=== PATIENT | male | born 1930 | race Caucasian/White ===

== ENCOUNTER → 2017-03-20 | Outpatient (CLI) | payer MEDICARE, OTHER ==
[~2017-03-20] MED LIST: ISOVUE-370 76% 100ML VIAL (Q9967) As Ordered ONE
--- NOTE | 2017-03-20 11:42 | REP ---
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 COMPARISON: None. CONTRAST: 100 mL Isovue 370. There is mediastinal adenopathy. There are no pleural or pericardial effusions. The ascending aorta is of normal caliber. At the proximal most portion of the descending thoracic aorta just beyond the aortic arch the maximal transverse dimension is 3.6 cm. Just distal to this the descending thoracic aorta has a maximal AP dimension of 3.8 cm and a maximal width of 4.6 cm. The descending thoracic aorta is markedly tortuous. The remainder of the caliber of the descending thoracic aorta is within normal limits. Evaluation of the lung david show left lower lobe varicoid bronchiectasis in an isolated area and the medial basal segment of the left lower lobe seen in conjunction with scattered cystic air-spaces and right lung base pleural blebs. There was evidence of biapical pleuroparenchymal scarring. The imaged osseous structures show chronic spinal degenerative changes and discogenic changes with bilateral shoulder degenerative changes. IMPRESSION: 1. Thoracic aortic measurements as described above. 2. Mediastinal adenopathy of an uncertain nature correlate clinically. 3. Chronic lung field changes as described above. 4. Other findings as described above. Signed by Gabriel Dunn DO 03/20/2017 11:52 A
--- NOTE | 2017-03-23 16:29 | REP ---
CT ANGIOGRAM ABDOMEN AND PELVIS: CT angiogram abdomen and pelvis performed following the intravenous administration of 100 mL of Isovue-370. Sagittal, coronal and MIP reconstruction images are performed. There is mild scattered atherosclerotic calcification of the abdominal aorta with tortuosity. There is no aneurysm. There is mild ectasia distally between the level of the renal arteries and bifurcation with a maximum AP diameter of 2.6 cm. Common iliac arteries are mildly ectatic, both measuring about 1.3 cm in maximum diameter. Celiac, superior mesenteric and inferior mesenteric arteries demonstrate mild narrowing without significant stenosis. There is no significant renal artery stenosis. There is no adenopathy. The liver, spleen, adrenals, pancreas and kidneys appear unremarkable. 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 There is sigmoid diverticulosis. There is no evidence of acute diverticulitis. There is no free air or free fluid in the abdomen or pelvis. No bowel wall abnormality is seen. IMPRESSION: Mild scattered atherosclerotic plaquing. Mild ectasia at distal abdominal aorta without aneurysm. Signed by Vladimir Maxwell MD 03/23/2017 05:45 P
== END ==
LOC: M RAD 10:36
PROVIDERS: ATTEND Internal Medicine
DX: I71.2 Thoracic aortic aneurysm, without rupture (principal)
CPT/HCPCS: 71275; 74174; Q9967

== ENCOUNTER → 2017-07-23 | Outpatient (REF) | payer MEDICARE, OTHER ==
[2017-07-23 14:53] LABS: ALBUMIN 4.2 GM/DL (3.2-5.2); ALBUMIN/GLOBULIN RATIO 1.24 (1.00-1.93); ALKALINE PHOSPHATASE 91 U/L (45-117); ALT/SGPT 38 U/L (12-78); ANION GAP 12 MEQ/L (8-16); AST/SGOT 32 U/L (15-37); BILIRUBIN,TOTAL 0.7 MG/DL (0.2-1.0); BLOOD UREA NITROGEN 14 MG/DL (7-18); CALCIUM LEVEL 9.6 MG/DL (8.8-10.2); CARBON DIOXIDE LEVEL 26 MEQ/L (21-32); CHLORIDE LEVEL 102 MEQ/L (98-107); CREATININE FOR GFR 0.89 MG/DL (0.70-1.30); GLOMERULAR FILTRATION RATE > 60.0 (>35); GLUCOSE, FASTING 78 MG/DL (83-110); POTASSIUM SERUM 4.6 MEQ/L (3.5-5.1); SODIUM LEVEL 140 MEQ/L (136-145); TOTAL PROTEIN 7.6 GM/DL (6.4-8.2)
[2017-07-23 15:14] LABS: BASO % 0.4 % (0.0-1.0); EOS # 0.2 K/mm3 (0.0-0.50); EOS % 2.1 % (0.0-3.0); LARGE UNSTAINED CELL # 0.2 K/mm3 (0.0-0.4); LARGE UNSTAINED CELL % 2.7 % (0.0-4.0); LYMPH # 1.8 K/mm3 (1.5-4.5); LYMPH % 22.3 % (24.0-44.0); MEAN CORPUSCULAR HEMOGLOBIN 33.1 pg (27.0-33.0); MEAN CORPUSCULAR HGB CONC 33.9 g/dl (32.0-36.5); MEAN CORPUSCULAR VOLUME 97.8 fl (80.0-96.0); MONO # 0.7 K/mm3 (0.0-0.8); MONO % 8.3 % (0.0-5.0); NEUTROPHILS # 5.1 K/mm3 (1.8-7.7); NEUTROPHILS % 64.1 % (36.0-66.0); PLATELET COUNT, AUTOMATED 238 k/mm3 (150-450); RED CELL DISTRIBUTION WIDTH 12.9 % (11.5-14.5)
== END ==
LOC: M LABNEURO 11:30
PROVIDERS: ATTEND Psychiatry & Neurology Neurology
DX: G45.9 Transient cerebral ischemic attack, unspecified (principal); R73.01 Impaired fasting glucose; E04.9 Nontoxic goiter, unspecified

== ENCOUNTER → 2019-09-21 | Outpatient (REF) | payer MEDICARE, OTHER ==
[2019-09-21 20:13] LABS: BASO % 0.5 % (0.0-1.0); EOS # 0.1 10^3/uL (0.0-0.5); EOS % 0.9 % (0.0-3.0); HEMATOCRIT 44.7 % (42.0-52.0); HEMOGLOBIN 14.3 g/dl (13.5-17.5); LYMPH # 1.8 10^3/uL (1.5-5.0); LYMPH % 20.7 % (24.0-44.0); MEAN CORPUSCULAR HEMOGLOBIN 31.9 pg (27.0-33.0); MEAN CORPUSCULAR VOLUME 99.8 fl (80.0-96.0); MONO # 1.4 10^3/uL (0.0-0.8); MONO % 16.4 % (0.0-5.0); NEUTROPHILS # 5.2 10^3/uL (1.5-8.5); NEUTROPHILS % 61.3 % (36.0-66.0); PLATELET COUNT, AUTOMATED 237 10^3/uL (150-450); RED BLOOD COUNT 4.48 10^6/uL (4.30-6.10); WHITE BLOOD COUNT 8.6 10^3/uL (4.0-10.0)
[2019-09-21 20:39] LABS: HEMOGLOBIN A1c 5.7 %
[2019-09-21 20:54] LABS: ALT/SGPT 28 U/L (12-78); BILIRUBIN,TOTAL 0.8 MG/DL (0.2-1.0); BLOOD UREA NITROGEN 16 MG/DL (7-18); CALCIUM LEVEL 9.3 MG/DL (8.8-10.2); CARBON DIOXIDE LEVEL 26 MEQ/L (21-32); CHLORIDE LEVEL 104 MEQ/L (98-107); CHOLESTEROL LEVEL 126 MG/DL (<200); CREATININE FOR GFR 0.88 MG/DL (0.70-1.30); GLOMERULAR FILTRATION RATE > 60.0 (>35); GLUCOSE, FASTING 87 MG/DL (70-100); HDL CHOLESTEROL 69 MG/DL (>40); POTASSIUM SERUM 4.6 MEQ/L (3.5-5.1); SODIUM LEVEL 138 MEQ/L (136-145); TRIGLYCERIDES LEVEL 74 MG/DL (<150)
[2019-09-21 20:55] LABS: ALBUMIN 3.8 GM/DL (3.2-5.2); CHOLESTEROL RISK RATIO 1.826 (<5); LDL CHOLESTEROL 42 MG/DL (<100); NON-HDL-C 57 MG/DL; TOTAL 25(OH) VITAMIN D 23.5 NG/ML (30.0-100.0); TOTAL PROTEIN 7.2 GM/DL (6.4-8.2); URIC ACID 4.6 MG/DL (3.5-7.2); VITAMIN B12 LEVEL 589 PG/ML (247-911)
== END ==
LOC: M SFHCLERA 10:03
PROVIDERS: ATTEND Family Medicine
DX: I10 Essential (primary) hypertension (principal); E53.8 Deficiency of other specified B group vitamins; E55.9 Vitamin D deficiency, unspecified; M10.9 Gout, unspecified
CPT/HCPCS: 80053; 80061; 82306; 82607; 83036; 84443; 84550; 85025; G0463

== ENCOUNTER 2020-04-05 07:08 | Emergency (ER) | payer MEDICARE, OTHER ==
[~2020-04-05] VITALS: Ht 170.2 cm; Wt 81.8 kg
[2020-04-05] MEDS ORDERED: FAMO1TAB11 (07:19)
[2020-04-05] MEDS ORDERED: VITA-122 (07:19)
[2020-04-05] MEDS ORDERED: BENA40TA5 (07:19)
[2020-04-05] MEDS ORDERED: ASPI81CH33 (07:19)
[2020-04-05] MEDS ORDERED: CELE1CAP9 (07:19)
[2020-04-05] MEDS ORDERED: ALLO100T (07:19)
[2020-04-05] MEDS ORDERED: TAMS1CAP17 (07:19)
[2020-04-05] MEDS ORDERED: AMLO2.5T3 (07:19)
--- NOTE | 2020-04-05 08:03 | REP ---
PELVIS RIGHT HIP: Three views. HISTORY: Injury lifting leg. Right groin pain. FINDINGS: AP view of the pelvis shows an intact bony pelvic ring. No fractures seen. No bony destructive lesion is seen. No sacral lesion is observed. There is mild bilateral hip joint osteoarthritis with mild acetabular and femoral head spurring. There is some chondrocalcinosis at the left hip joint. AP and frog-leg views of the right hip demonstrate the osteoarthritic spurring inferiorly. There is some tendon insertion site spurring on the greater and lesser trochanters. No acute bony abnormalities seen. IMPRESSION: No acute abnormality. Tendon insertion site spurring and bilateral hip osteoarthritis. Electronically Signed by Frank Nascimento MD 04/05/2020 08:43 A
[2020-04-05 08:28] VITALS: BP 140/80
[2020-04-05] MEDS ORDERED: ACETAMINOPHEN 325 MG TAB PO ONE (08:30)
[2020-04-23] MEDS ORDERED: ALL10TAB29 PO (06:20)
== END 2020-04-05 08:37 | disposition home or self-care (01) ==
LOC: M ED 07:08
DX: S76.811A Strain of other specified muscles, fascia and tendons at thigh level, right thigh, initial encounter (principal); M16.11 Unilateral primary osteoarthritis, right hip; M76.9 Unspecified enthesopathy, lower limb, excluding foot; X50.1XXA Overexertion from prolonged static or awkward postures, initial encounter; Y92.098 Other place in other non-institutional residence as the place of occurrence of the external cause; I10 Essential (primary) hypertension; E78.5 Hyperlipidemia, unspecified; K21.9 Gastro-esophageal reflux disease without esophagitis; Z79.899 Other long term (current) drug therapy; Z79.82 Long term (current) use of aspirin

== ENCOUNTER → 2020-04-05 | Outpatient (REF) | payer MEDICARE, OTHER ==
[~2020-04-05] MED LIST changes: +ALLO100T; +AMLO2.5T3; +ASPI81CH33; +BENA40TA5; +CELE1CAP9; +FAMO1TAB11; -ISOVUE-370 76% 100ML VIAL (Q9967) As Ordered ONE; +TAMS1CAP17; +VITA-122
[2020-04-05 17:41] LABS: BLOOD UREA NITROGEN 20 MG/DL (7-18); CALCIUM LEVEL 8.9 MG/DL (8.8-10.2); CARBON DIOXIDE LEVEL 23 MEQ/L (21-32); CHLORIDE LEVEL 111 MEQ/L (98-107); CREATININE FOR GFR 0.88 MG/DL (0.70-1.30); GLOMERULAR FILTRATION RATE > 60.0 (>35); GLUCOSE, FASTING 93 MG/DL (70-100); POTASSIUM SERUM 4.6 MEQ/L (3.5-5.1); SODIUM LEVEL 143 MEQ/L (136-145)
== END ==
LOC: M SFHCLERA 09:05
PROVIDERS: ATTEND Family Medicine
DX: I10 Essential (primary) hypertension (principal)

== ENCOUNTER 2020-04-23 06:05 | Emergency (ER) | payer MEDICARE, OTHER ==
[~2020-04-23] VITALS: Ht 170.2 cm; Wt 81.4 kg
[2020-04-23] MEDS ORDERED: PEGPOW PO (06:20)
[2020-04-23] MEDS ORDERED: CETI-24 PO (06:20)
[2020-04-23] MEDS ORDERED: LIDO1PAD TOP (06:20)
[2020-04-23 07:01] LABS: HEMATOCRIT 35.2 % (42.0-52.0); HEMOGLOBIN 11.7 g/dl (13.5-17.5); MEAN CORPUSCULAR HEMOGLOBIN 31.5 pg (27.0-33.0); MEAN CORPUSCULAR HGB CONC 33.2 g/dl (32.0-36.5); MEAN CORPUSCULAR VOLUME 94.9 fl (80.0-96.0); PLATELET COUNT, AUTOMATED 268 10^3/uL (150-450); RED BLOOD COUNT 3.71 10^6/uL (4.30-6.10)
[2020-04-23] MEDS ORDERED: traMADol 50 MG TAB PO ONE (07:15)
[2020-04-23 07:22] LABS: BLOOD UREA NITROGEN 20 MG/DL (7-18); CALCIUM LEVEL 8.5 MG/DL (8.8-10.2); CARBON DIOXIDE LEVEL 25 MEQ/L (21-32); CHLORIDE LEVEL 110 MEQ/L (98-107); CREATININE FOR GFR 0.76 MG/DL (0.70-1.30); GLOMERULAR FILTRATION RATE > 60.0 (>35); GLUCOSE, FASTING 89 MG/DL (70-100); POTASSIUM SERUM 4.2 MEQ/L (3.5-5.1); SODIUM LEVEL 142 MEQ/L (136-145)
--- NOTE | 2020-04-23 07:40 | REPVR ---
PROCEDURE INFORMATION: Exam: US Pelvis Limited, Male Exam date and time: 04/23/2020 7:07 AM Age: 89 years old Clinical indication: Pain and injury or trauma; Fall; Initial encounter; Sprain or strain; Right; Other: Groin pain; Patient HX: PT fell, strained RT groin 2 weeks ago TECHNIQUE: Imaging protocol: Real-time pelvic ultrasound with image documentation. COMPARISON: [place] Hip,AP,LAT to include Pelvis 04/05/2020 7:40 AM FINDINGS: Free fluid: There is no fluid collection. Soft tissues: No definite inguinal hernia is identified at rest or with the Valsalva maneuver. IMPRESSION: No focal sonographic abnormality identified in the right groin. Electronically signed by: Debbi Amezquita On 04/23/2020 07:40:26 AM
[2020-04-23] MEDS ORDERED: NS 500 ML IV ONE (09:15)
[2020-04-23] MEDS ORDERED: ISOVUE-370 76% 100ML VIAL As Ordered ONE (09:21)
--- NOTE | 2020-04-23 09:37 | REP ---
REASON: Pain after tripping. PRIORS: None. AP pelvis of 04/05/2020 was reviewed. Once again, there is asymmetric hip joint space narrowing with mild to moderate marginal osteophytosis. There is no acute fracture, dislocation or subluxation. There is no significant change compared to the prior AP pelvis. IMPRESSION: Chronic changes as described above. Electronically Signed by Gabriel Dunn DO 04/23/2020 10:10 A
[2020-04-23] MEDS ORDERED: MORPHINE 2 MG/ML 1ML VIAL (J2270) IV ONE (10:15)
--- NOTE | 2020-04-23 10:53 | REP ---
CT PELVIS WITH IV CONTRAST: CT pelvis performed following the intravenous administration of 100 mL of Isovue 370. Sagittal and coronal reconstruction images are performed. Distal abdominal aorta is normal in caliber with mild atherosclerotic calcification. Iliac and femoral arteries are patent. There is no adenopathy in the pelvis or evidence of suspicious mass. The appendix is normal. There is sigmoid diverticulosis without acute diverticulitis. A bladder diverticulum is seen anteriorly on the right. There are moderate degenerative changes of the visualized lumbar spine as well as of the bilateral hips. No acute fracture is seen of the visualized osseous structures. There is fluid and edema projecting anterior to the right hip in the region of the iliopsoas muscle consistent with right iliopsoas bursitis. IMPRESSION: Findings consistent with right iliopsoas bursitis. There are moderate degenerative changes of the visualized lumbar spine and also at the bilateral hips. Bladder diverticulum. Sigmoid diverticulosis. Appendix is normal. Electronically Signed by Vladimir Maxwell MD 04/24/2020 12:58 P
[2020-04-23 10:58] VITALS: BP 170/77
[2020-04-23] MEDS ORDERED: PRED20TA PO (12:08)
== END 2020-04-23 12:10 | disposition home or self-care (01) ==
LOC: EDBD 06:05 → M ED 06:05
DX: M70.71 Other bursitis of hip, right hip (principal); Z79.899 Other long term (current) drug therapy; Z79.82 Long term (current) use of aspirin
CPT/HCPCS: 72193; 73502; 76857; 80048; 85027; 96361; 96374; 97161; 99284; J2270; Q9967

== ENCOUNTER 2021-05-22 11:52 | Emergency (ER) | payer MEDICARE, OTHER ==
[~2021-05-22] VITALS: Ht 170.2 cm; Wt 81.8 kg
[~2021-05-22 11:52] MED LIST changes: +CETI-24 PO; +LIDO1PAD TOP; +POLY510P14 PO; +PRED20TA PO; -VITA-122; +VITA-168
[2021-05-22 12:40] LABS: BASO # 0.1 10^3/uL (0.0-0.2); BASO % 0.8 % (0.0-1.0); EOS # 0.1 10^3/uL (0.0-0.5); EOS % 1.3 % (0.0-3.0); HEMATOCRIT 41.3 % (42.0-52.0); HEMOGLOBIN 13.9 g/dl (13.5-17.5); LYMPH # 1.4 10^3/uL (1.5-5.0); LYMPH % 22.8 % (24.0-44.0); MEAN CORPUSCULAR HEMOGLOBIN 31.4 pg (27.0-33.0); MEAN CORPUSCULAR HGB CONC 33.7 g/dl (32.0-36.5); MEAN CORPUSCULAR VOLUME 93.2 fl (80.0-96.0); MONO # 0.8 10^3/uL (0.0-0.8); MONO % 12.3 % (2.0-8.0); NEUTROPHILS # 3.9 10^3/uL (1.5-8.5); NEUTROPHILS % 62.6 % (36.0-66.0); PLATELET COUNT, AUTOMATED 219 10^3/uL (150-450); RED BLOOD COUNT 4.43 10^6/uL (4.30-6.10); WHITE BLOOD COUNT 6.2 10^3/uL (4.0-10.0)
--- NOTE | 2021-05-22 12:48 | REP ---
INDICATION: CHEST PAIN COMPARISON: None. TECHNIQUE: Portable AP view of the chest FINDINGS: Cardiomegaly and tortuous thoracic aorta with atherosclerotic changes noted. Lung david demonstrate chronic appearing changes. Superimposed left lower lobe airspace disease cannot be excluded. No obvious effusion. No pneumothorax. Skeletal structures demonstrate degenerative changes. IMPRESSION: Cardiomegaly and chronic changes. Cannot exclude superimposed left lower lobe airspace disease. <Electronically signed by Cordell Foote > 05/22/21 [id number]
[2021-05-22 13:07] LABS: BLOOD UREA NITROGEN 18 MG/DL (7-18); CALCIUM LEVEL 8.9 MG/DL (8.8-10.2); CARBON DIOXIDE LEVEL 24 MEQ/L (21-32); CHLORIDE LEVEL 111 MEQ/L (98-107); CREATININE FOR GFR 0.69 MG/DL (0.70-1.30); GLOMERULAR FILTRATION RATE > 60.0 (>35); GLUCOSE, FASTING 100 MG/DL (70-100); POTASSIUM SERUM 4.8 MEQ/L (3.5-5.1); SODIUM LEVEL 140 MEQ/L (136-145)
[2021-05-22] MEDS ORDERED: ELIQ5TAB PO (13:23)
[2021-05-22 13:30] VITALS: BP 139/87
--- NOTE | 2021-05-23 17:53 | ECGEPIP ---
[facility] - ED Test Date: 2021-05-22 Pat Name: RUTH GRAVES Department: Room: - Gender: Male Guest Service Host: LR : [id number] Requested By: JORDAN Moreno Order Number: [id number] Reading MD: Abigail Santo Measurements Intervals [place] Rate: 68 P: ND: QRS: -28 QRSD: 102 T: -5 QT: 420 QTc: 446 Interpretive Statements Atrial flutter with variable AV block NSTTW abnormalities No prior Electronically Signed on 05-23-2021 17:53:07 EDT by Abigail Santo
== END 2021-05-22 13:43 | disposition home or self-care (01) ==
LOC: M ED 11:52
DX: I48.92 Unspecified atrial flutter (principal); I44.39 Other atrioventricular block; I11.9 Hypertensive heart disease without heart failure; N40.0 Benign prostatic hyperplasia without lower urinary tract symptoms; Z79.82 Long term (current) use of aspirin; Z79.899 Other long term (current) drug therapy; L03.011 Cellulitis of right finger
CPT/HCPCS: 71045; 80048; 84484; 85025; 93005; 93041; 94760; 99285; G0463

== ENCOUNTER → 2021-06-05 | Outpatient (CLI) | payer MEDICARE, OTHER ==
[~2021-06-05] MED LIST changes: +ELIQ5TAB PO
--- NOTE | 2021-06-05 10:02 | REP ---
INDICATION: THORACIC AAA COMPARISON: [id number] TECHNIQUE: Axial noncontrast images from the thoracic inlet to the upper abdomen with coronal and sagittal reformations. This CT examination was performed using the following dose reduction techniques: Automated exposure control, adjustment of mA and/or kv according to the patient's size, and use of iterative reconstruction technique. FINDINGS: The thoracic aorta again appears severely ectatic atherosclerotic and moderately aneurysmal. The ascending aorta at the level of the main pulmonary artery measures 3.8 cm maximal diameter and the posterior aspect of the aortic arch measures 3.9 cm maximal diameter (previously measuring 3.6 cm maximal diameter at the same level) while the descending aorta at the level of the cyril measures 3.6 x 3.5 cm maximal diameter (previously measuring 3.3 x 3.4 cm diameter at the same level). The heart demonstrates considerable cardiomegaly which is increased from prior examination and there is evidence for acute/chronic pulmonary vascular congestion including cephalization, increased interstitial markings, bibasilar atelectasis and small pleural effusions. Mediastinal adenopathy is also identified which may be slightly increased from prior examination. There is no evidence for pneumothorax. IMPRESSION: 1. Thoracic aorta demonstrates ectatic atherosclerotic changes and moderate aneurysmal dilatation which is slightly increased from prior examination measuring 3.9 cm maximal diameter along the posterior aortic arch. 2. Considerable increased cardiomegaly and evidence for acute/chronic pulmonary vascular congestion and interstitial edema including lower lobe atelectasis/consolidations and small pleural effusions. 3. Significant adenopathy which is relatively similar to prior examination although possibly slightly increased. This along with partially obscured lower lobe opacities may warrant short-term follow-up to exclude further underlying pathology. <Electronically signed by Cordell Foote > 06/05/21 [id number]
== END ==
LOC: M RAD 08:51
PROVIDERS: ATTEND Internal Medicine Cardiovascular Disease
DX: I71.4 Abdominal aortic aneurysm, without rupture (principal)

== ENCOUNTER → 2021-06-24 | Outpatient (CLI) | payer MEDICARE, OTHER ==
[2021-06-24 14:52] LABS: HEMATOCRIT 41.8 % (42.0-52.0); HEMOGLOBIN 13.9 g/dl (13.5-17.5); MEAN CORPUSCULAR HEMOGLOBIN 31.1 pg (27.0-33.0); MEAN CORPUSCULAR HGB CONC 33.3 g/dl (32.0-36.5); MEAN CORPUSCULAR VOLUME 93.5 fl (80.0-96.0); PLATELET COUNT, AUTOMATED 218 10^3/uL (150-450); RED BLOOD COUNT 4.47 10^6/uL (4.30-6.10); WHITE BLOOD COUNT 5.8 10^3/uL (4.0-10.0)
== END ==
LOC: M LAB 13:45
PROVIDERS: ATTEND Internal Medicine Cardiovascular Disease
DX: R06.00 Dyspnea, unspecified (principal)

== ENCOUNTER → 2021-08-07 | Outpatient (CLI) | payer MEDICARE, OTHER ==
--- NOTE | 2021-08-07 12:13 | REP ---
INDICATION: MEDIASTINAL ADENOPATHY COMPARISON: Multiple the latest 06/05/2021 also without contrast TECHNIQUE: Standard helical technique without contrast. This causes exam limitations. 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 The maximal AP dimension of this outer wall to outer wall measurement is 4.2 cm by my measurement status quo. Note is again made of mediastinal adenopathy which is extensive but unchanged. Hilar adenopathy cannot be ruled out since no intravenous contrast was administered making evaluation of the pulmonary santiago difficult. Small stable bilateral pleural effusions are noted. There is four-chamber cardiac enlargement. There is no pericardial effusion. There is no significant change in appearance of the imaged upper abdomen or imaged osseous structures. Evaluation of the lung david shows stable appearing biapical pleuroparenchymal scarring and an unchanged mass/area of consolidation in the right lower lobe compared to 06/05/2021 which represents a change from 03/20/2017. Other stable appearing scattered asymmetric densities are seen throughout both lung david. IMPRESSION: No significant change from 06/05/2021 with findings as described above. <Electronically signed by Gabriel Dunn > 08/07/21 1215
== END ==
LOC: M RAD 11:23
PROVIDERS: ATTEND Family Medicine
DX: R59.0 Localized enlarged lymph nodes (principal)